=== PATIENT | male | born 1995 | race Caucasian/White ===

== ENCOUNTER 2017-12-25 00:01 | Emergency (ER) | payer OTHER ==
[2017-12-25] MEDS ORDERED: Ibuprofen TAB* 600 MG PO ONE (01:17)
[2017-12-25] MEDS ORDERED: Cephalexin CAP* 500 MG PO ONE (01:17)
[2017-12-25] MEDS ORDERED: Sulfamethox/Trimethoprim DS 800/160* TAB PO ONE (01:21)
--- NOTE | 2017-12-25 01:21 | ED ---
Laceration/Wound HPI - HPI Summary HPI Summary: Patient complains of 2 laceration to right wrist after trying to open a window and breaking through glass. Active bleeding here in the ED. Tetanus status up- to-date. Denies any other pain, injury, symptoms. Admits to 4 beers prior to event. - History of Current Complaint Stated Complaint: RIGHT ARM LAC Time Seen by Provider: 12/25/17 00:06 Hx Obtained From: Patient Mechanism of Injury: Sharp/Blunt Trauma Onset/Duration: Sudden Onset Aggravating: Movement Alleviating: Compression Timing: Constant Onset Severity: Mild Current Severity: Mild Pain Intensity: 2 Pain Scale Used: 0-10 Numeric Associated Signs & Symptoms: Negative - Allergy/Home Medications Allergies/Adverse Reactions: Allergies Allergy/AdvReac Type Severity Reaction Status Date / Time No Known Allergies Allergy Verified 12/25/17 00:03 PMH/Surg Hx/FS Hx/Imm Hx Endocrine/Hematology History: Reports: Hx Diabetes Denies: Hx Anticoagulant Therapy Cardiovascular History: Denies: Hx Cardiac Arrest History: Denies: Hx Dialysis Neurological History: Denies: Hx CVA - Immunization History Date of Tetanus Vaccine: 07/2017 Infectious Disease History: No Infectious Disease History: Denies: Traveled Outside the [place] in Last 30 Days - Social History Occupation: Student Alcohol Use: Rare Alcohol Amount: 4 drinks tonight Substance Use Type: Reports: None Smoking Status (MU): Never Smoked Tobacco Review of Systems Constitutional: Negative Eyes: Negative ENT: Negative Cardiovascular: Negative Respiratory: Negative Gastrointestinal: Negative Genitourinary: Negative Musculoskeletal: Negative Skin: Other Neurological: Negative Psychological: Normal All Other Systems Reviewed And Are Negative: Yes Physical Exam - Summary Physical Exam Summary: Two lacerations to medial right wrist with active projectile bleeding from most medial laceration. PMS intact distally. Cap refill moderate. Triage Information Reviewed: Yes Vital Signs On Initial Exam: Initial Vitals Temp Pulse Resp BP Pulse Ox 98.9 F 68 18 131/78 98 12/25/17 00:01 12/25/17 00:01 12/25/17 00:01 12/25/17 00:01 12/25/17 00:01 Vital Signs Reviewed: Yes Appearance: Positive: Well-Appearing Skin: Positive: Warm Head/Face: Positive: Normal Head/Face Inspection Eyes: Positive: Normal Neck: Positive: Supple Respiratory/Lung Sounds: Positive: Clear to Auscultation Cardiovascular: Positive: Normal Abdomen Description: Positive: Nontender Musculoskeletal: Positive: Normal Neurological: Positive: Normal Psychiatric: Positive: Normal AVPU Assessment: Alert - [place] Coma Scale Best Eye Response: 4 - Spontaneous Best Motor Response: 6 - Obeys Commands Best Verbal Response: 5 - Oriented Coma Scale Total: 15 Procedures - Laceration/Wound Repair 1 Location: upper extremity Description: Linear Anesthesia: Local, 1.0% Length, Depth and Shape: 3cm x 1cm Betadine Prep?: Yes Irrigated w/ Saline (ccs): 200 Laceration/Wound Explored: clean Debridement: minimal Number of Sutures: 5 - 4.0 eithilon Layer Closure?: No Sterile Dressing Applied?: No - pressure dressing applied 2 Location: upper extremity Description: Linear Anesthesia: Local, 1.0% Length, Depth and Shape: 4cm x 1cm Betadine Prep?: Yes Irrigated w/ Saline (ccs): 200 Laceration/Wound Explored: clean Debridement: minimal Number of Sutures: 5 - 4.0 ethilon Layer Closure?: No Sterile Dressing Applied?: No - presure dressing applied Diagnostics - Vital Signs Vital Signs Temp Pulse Resp BP Pulse Ox 12/25/17 00:01 98.9 F 68 18 131/78 98 - Laboratory Lab Results: Lab Results 12/25/17 Range/Units 00:24 POC Glucose (mg/dL) 163 H (70-100) mg/dL Lab Statement: Any lab studies that have been ordered have been reviewed, and results considered in the medical decision making process. Laceration Repair Course/Dx - Course Course Of Treatment: Patient had active bleeding possibly involving radial artery. Dr chavez discussed patient with Dr. Jarvis recommended follow-up in clinic next week. Tourniquet was placed on right forearm. Bleeding. 2 lacerations were extensively irrigated. Anesthetized with lidocaine 1%. Sutured with 4. 0 Ethilon. Pressure dressing applied post suturing. Patient will leave pressure dressing in place until follow-up with orthopedics Dr. Jarvis. Rx for Bactrim. Started here on Bactrim in the ED. - Clinical Impression Provider Diagnoses: Laceration Discharge - Sign-Out/Discharge Documenting (check all that apply): Patient Departure - Discharge Plan Condition: Stable Disposition: HOME Prescriptions: Sulfamethox/Trimethoprim DS* [Bactrim DS 800/160 TAB*] 1 tab PO BID 10 Days #20 tab Patient Education Materials: Care For Your Stitches (ED), Laceration (ED) Referrals: Manuel Jarvis MD [Medical Doctor] - Additional Instructions: Keep wound clean and dry and intact. Keep pressure dressing on until you follow -up with orthopedics Dr. Jarvis. Call the clinic on Wednesday to set up an appointment. Take antibiotics as directed. Take ibuprofen for pain. Return to the ED for any new or worsening symptoms - Billing Disposition and Condition Condition: STABLE Disposition: Home
[2017-12-25 01:37] VITALS: BP 143/100
== END 2017-12-25 01:34 | disposition home or self-care (01) ==
LOC: ED 00:01
DX: S61.511A Laceration without foreign body of right wrist, initial encounter (principal); W25.XXXA Contact with sharp glass, initial encounter; Y92.9 Unspecified place or not applicable
CPT/HCPCS: 12002; 99283; A9270-GY